=== PATIENT | male | born 1940 | race Caucasian/White ===

== ENCOUNTER → 2020-07-31 | Outpatient (CLI) | payer OTHER | LOC: SJCVC 14:44 | PROVIDERS: ATTEND Internal Medicine | DX: R94.31 Abnormal electrocardiogram [ECG] [EKG] (principal); I44.0 Atrioventricular block, first degree; R00.1 Bradycardia, unspecified; I47.1 Supraventricular tachycardia; E78.5 Hyperlipidemia, unspecified; I10 Essential (primary) hypertension; J44.9 Chronic obstructive pulmonary disease, unspecified; I71.6 Thoracoabdominal aortic aneurysm, without rupture ==

== ENCOUNTER → 2020-11-27 | Outpatient (CLI) | payer OTHER | LOC: SJCVC 12:00 | PROVIDERS: ATTEND Internal Medicine | DX: I44.0 Atrioventricular block, first degree (principal); R94.31 Abnormal electrocardiogram [ECG] [EKG]; I47.1 Supraventricular tachycardia; E78.5 Hyperlipidemia, unspecified; I10 Essential (primary) hypertension; J44.9 Chronic obstructive pulmonary disease, unspecified; I71.6 Thoracoabdominal aortic aneurysm, without rupture; I00 Rheumatic fever without heart involvement; Z77.018 Contact with and (suspected) exposure to other hazardous metals; Z77.090 Contact with and (suspected) exposure to asbestos; Z87.891 Personal history of nicotine dependence; Z79.899 Other long term (current) drug therapy ==